=== PATIENT | male | born 2000 | race Caucasian/White ===

== ENCOUNTER 2024-06-11 17:26 | Emergency (ER) | payer SELFPAY ==
[2024-06-11 17:29] VITALS: BP 122/63; BMI 18.1
--- NOTE | 2024-06-11 19:17 | ED.GENMED ---
History of Present Illness
General
Chief Complaint: Anxiety
Source: patient
Exam Limitations: none
Time Seen by Provider: 06/11/24 18:19
Nursing documentation reviewed up to this point in time: agreed with
History of Present Illness
History of Present Illness:
Patient presents to ED secondary to 1 week history of 'not feeling well', along with worsening chills sensation with difficulty breathing, while he was at work this afternoon, where he his temperature was noted to be 101.2. On the way home, after
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 He was given Versed and brought to the hospital by paramedics. Patient denies headache.
Denies sore throat. Denies coughing. Denies nausea, vomiting, or diarrhea. Denies rash. 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 Denies recent travel. Patient otherwise is healthy, without any significant medical history history.
Review of Systems
Review of Systems
Allergies reviewed?: Yes
All Other Systems: ROS reviewed and negative except as documented in HPI and ROS
Constitutional: Reports fever and chills
EENT: Reports no symptoms
Respiratory: Reports cough and trouble breathing
Cardiac: Reports no symptoms
ABD/GI: Reports no symptoms; Denies vomiting or diarrhea
: Reports no symptoms
Musculoskeletal: Reports muscle pain
Skin: Reports no symptoms
Neurological: Reports no symptoms
Phy Exam
Physical Exam
Physical Exam:
Physical Exam
General: mild distress, not acutely ill. febrile. tachycardic.
Head: nc/at. eomi
Neck: supple. no meningeal signs. normal posterior pharynx
Heart: tachycardic, no murmur. equal radial pulses.
Lungs: no acute respiratory distress. clear bilaterally
Abdomen: normal bowel sounds. not tender.
Neuro: alert and oriented x 3. no focal neurological deficits
Skin: no rash
Psychiatric: well kept. interactive and cooperative
Extremities: no edema. no calf tenderness.
Course
Orders/Labs/Results
Orders:
Orders
06/11/24 19:02
0.9% Sodium Chloride 1000 ml [Nss] 1,000 ml IV BOLUS
Acetaminophen [Tylenol] 650 mg PO NOW STA
Ketorolac [Toradol] 30 mg IV NOW STA
06/11/24 19:35
Basic Metabolic Panel Urgent
COVID-19 Antigen Urgent
Source: Nasal Swab
Complete Blood Count/No Diff Urgent
Influenza A+B Rapid Molecular Urgent
MATHIEU Source: Nasal Swab
Specimen Description:
06/11/24 20:04
Potassium Chloride [KCl] 40 meq PO NOW STA
Abnormal Lab Results
06/11/24
19:35
WBC 14.6 H 10^3/uL
(4.8-10.8)
RBC 4.40 L 10^6/uL
(4.70-6.10)
Hct 38.0 L %
(39.0-52.0)
MPV 11.1 H fL
(7.4-10.4)
Sodium 132 L mmol/L
(135-145)
Potassium 3.3 L mmol/L
(3.5-5.1)
Glucose 118 H mg/dl
(70-99)
06/11/24 19:35
06/11/24 19:35
Vital Signs
Initial and Last Documented VS:
Initial Vital Signs
Temp Pulse Resp BP Pulse Ox
99.1 F 105 20 122/63 100
06/11/24 17:29 06/11/24 17:29 06/11/24 17:29 06/11/24 17:29 06/11/24 17:29
Last Documented Vital Signs
Temp Pulse Resp BP Pulse Ox
100.4 F H 94 15 108/59 94
06/11/24 19:35 06/11/24 20:30 06/11/24 20:30 06/11/24 19:35 06/11/24 20:30
MDM/Problems Addressed
MDM/Problems Addressed:
History and exam consistent with likely flulike symptoms. Patient otherwise is hemodynamically stable and nontoxic-appearing, during observation. Patient will be treated symptomatically with IV fluids, as well as Tylenol/Motrin. Afterwards,
patient will be discharged home, with recommendation to continue hydration at home along with PCP follow-up as needed.
*Critical Care Note
Total Time (30-74mins, 75-104mins- exclusive of procedures): Not Applicable
ED Attending Note
-
Portions of this chart may have been created with voice recognition software.� Occasional wrong word or��sound alike� substitutions may have occurred due to the inherent limitations of voice recognition software.
Discharge Plan
Departure
Patient Disposition: Home (Routine Discharge)
Date of Disposition: 06/11/24
Time of Disposition: 20:16
Patient with high blood pressure during this ER visit?: No
Discharge Problem:
Acute viral syndrome
Instructions: Flu in adults - ED discharge instructions
Referrals:
UNKNOWN - PT DOES,NOT KNOW [Family Provider] -
Activity Restrictions/Additional Instructions:
As discussed, please continue to take Tylenol/Motrin for fever, along with hydration at home, as well as primary care for follow-up as an outpatient.
Interventions
Interventions:
*Risk Screen - Suicide Last Done: 06/11/24 21:13
*General Assessment Last Done: 06/11/24 21:13
*Neglect/Abuse Screening Last Done: 06/11/24 21:13
ED- Fall Risk Assessment Last Done: 06/11/24 21:13
*ED COVID-19 Vaccine History Last Done: 06/11/24 21:13
*Nursing Disposition Last Done: 06/11/24 21:13
ED-Psychological Assessment Last Done: 06/11/24 20:30
Discharge Date and Time
Discharge Date/Time: 06/11/24 21:14
Print Language: IRISH
[2024-06-11] MEDS: TYLENOL 650 MG PO (19:32)
[2024-06-11] MEDS: NSS 1000 IV (19:32)
[2024-06-11] MEDS: TORADOL 30 MG IV (19:33)
[2024-06-11 19:35] VITALS: BP 108/59
[2024-06-11 19:46] LABS: Mean Corp Hgb Conc. 34.2 g/dL (33.0-37.0); Mean Corpuscular Hgb 29.5 pg (27.0-31.0); Mean Corpuscular Volume 86.4 fL (80.0-94.0); Mean Platelet Volume 11.1 fL (7.4-10.4); Platelet Count 169 10^3/uL (130-400); Red Cell Dist. Width 12.1 % (11.5-14.5); White Blood Cell Count 14.6 10^3/uL (4.8-10.8)
[2024-06-11 20:00] LABS: Blood Urea Nitrogen 12 mg/dl (9-20); Calcium 8.9 mg/dl (8.4-10.2); Carbon Dioxide 23 mmol/L (22-30); Chloride 98 mmol/L (98-107); Estimated Creatinine Clearance > 125 ml/min; Glucose 118 mg/dl (70-99); Potassium 3.3 mmol/L (3.5-5.1); Sodium 132 mmol/L (135-145); eGFR > 60.00
[2024-06-11 20:09] LABS: COVID-19 Antigen Negative (Negative)
[2024-06-11] MEDS: KCL 40 MEQ PO (20:36)
== END 2024-06-11 21:14 | disposition home or self-care (01) ==
LOC: EMR 17:26
PROVIDERS: EMERGENCY PHYSICIAN Emergency Medicine
DX: B34.9 Viral infection, unspecified (principal)
CPT/HCPCS: 96374; 96361; 99284; 80048; 85027; 87502; 87811